=== PATIENT | female | born 1940 | race Caucasian/White ===

== ENCOUNTER 2018-08-17 14:46 | Emergency (ER) | payer OTHER ==
[~2018-08-17] VITALS: Ht 165.1 cm; Wt 67.8 kg
[2018-08-17 16:17] LABS: BASOPHILS % (AUTO) 1.5 % (0.0-2.0); EOSINOPHILS % (AUTO) 3.9 % (1.0-6.0); HEMATOCRIT 39.4 % (36-46); HEMOGLOBIN 12.5 g/dL (12.0-16.0); LYMPHOCYTES # (AUTO) 1.4 K/uL (1.0-4.8); MEAN CORPUSCULAR HEMOGLOBIN 25.8 pg (26.0-34.0); MEAN CORPUSCULAR HGB CONC 31.8 G/dL (31.0-37.0); MEAN CORPUSCULAR VOLUME 81 fL (80-100); MONOCYTES # (AUTO) 0.4 K/uL (0.1-1.0); MONOCYTES % (AUTO) 7.3 % (2.0-9.0); NEUTROPHILS # (AUTO) 3.5 K/uL (1.8-7.7); NEUTROPHILS % (AUTO) 62.3 % (40.0-70.0); PLATELET COUNT (AUTO) 350 K/uL (150-450); RED BLOOD CELL COUNT(AUTO) 4.86 MIL/uL (4.00-5.20); RED CELL DISTRIBUTION WIDTH 17.8 % (11.5-14.5)
[2018-08-17 16:28] LABS: CALCIUM, TOTAL 8.6 mg/dL (8.8-10.5); CREATININE 1.38 mg/dL (0.60-1.30); POTASSIUM 3.5 mmol/L (3.5-5.1)
[2018-08-17 16:31] LABS: INR 0.9 (0.9-1.1); PROTHROMBIN TIME 9.6 SEC (9.4-11.6)
[2018-08-17] MEDS ORDERED: LEVO75 PO (16:33)
[2018-08-17] MEDS ORDERED: INSU100V3 SQ (16:33)
[2018-08-17] MEDS ORDERED: CALC25 PO (16:33)
[2018-08-17] MEDS ORDERED: ASPI81 PO (16:33)
[2018-08-17] MEDS ORDERED: ISOS30TA6 PO (16:33)
[2018-08-17] MEDS ORDERED: ATOR40TA28 PO (16:33)
[2018-08-17] MEDS ORDERED: CLOP75 PO (16:33)
[2018-08-17] MEDS ORDERED: NITR.4 SL (16:33)
[2018-08-17] MEDS ORDERED: NPH,100I SQ (16:33)
[2018-08-17] MEDS ORDERED: BUME1TAB17 PO (16:33)
[2018-08-17] MEDS ORDERED: ALBU8HFA IH (16:33)
[2018-08-17] MEDS ORDERED: METO-558 PO (16:33)
[2018-08-17] MEDS ORDERED: AMLO-511 PO (16:33)
[2018-08-17 16:57] LABS: ALBUMIN 2.3 g/dL (3.4-5.0); BILIRUBIN,TOTAL 0.2 mg/dL (0.1-1.0); TOTAL PROTEIN, SERUM 6.9 g/dL (6.4-8.2)
[2018-08-17 17:00] LABS: FREE T4 (FREE THYROXINE) 0.96 ng/dL (0.76-1.46); THYROID STIMULATING HORMONE 4.37 uIU/mL (0.36-3.74)
[2018-08-17] MEDS ORDERED: FUROSEMIDE 20 MG/2 ML VIAL IVP ONE (19:45)
[2018-08-17 20:19] LABS: GLUCOSE,POINT OF CARE 136 MG/DL (70-110)
[2018-08-17] MEDS ORDERED: LORazepam 2 MG/ML VIAL IM ONE (20:30)
[2018-08-17] MEDS ORDERED: LORazepam 2 MG/ML VIAL IVP ONE (20:30)
[2018-08-17 21:24] VITALS: BP 168/86
== END 2018-08-17 21:47 | disposition short-term general hospital (02) ==
LOC: EMS 14:47
DX: S43.015A Anterior dislocation of left humerus, initial encounter (principal); F79 Unspecified intellectual disabilities; G93.40 Encephalopathy, unspecified; F03.90 Unspecified dementia, unspecified severity, without behavioral disturbance, psychotic disturbance, mood disturbance, and anxiety; E11.9 Type 2 diabetes mellitus without complications; I10 Essential (primary) hypertension; E03.9 Hypothyroidism, unspecified; R79.1 Abnormal coagulation profile; W19.XXXA Unspecified fall, initial encounter; Y93.89 Activity, other specified; Y92.89 Other specified places as the place of occurrence of the external cause; Y99.8 Other external cause status
CPT/HCPCS: 23650; 70450; 71045; 73030; 80053; 82550; 82962; 83880; 84439; 84443; 84484; 85025; 85610; 85730; 93005; 96372; 96374; 99285; G0480; J1940; J2060